=== PATIENT | male | born 1960 | race Caucasian/White ===

== ENCOUNTER 2020-08-23 22:46 | Emergency (ER) | payer SELFPAY ==
[~2020-08-23] VITALS: Ht 185.4 cm; Wt 84.4 kg
[2020-08-23 22:50] VITALS: BP 127/76
--- NOTE | 2020-08-23 22:55 | NUR ---
PT BIBRA C/O ETOH FOUND IN THE SIDEWALK. PT UNWILLING TO ANSWER QUESTIONS. BREATHING EVEN AND UNLABORED. ATTACHED TO MONITOR AND POX. MD AT BEDSIDE. WILL CONTINUE TO MONITOR.
--- NOTE | 2020-08-24 14:05 | NUR ---
"Finger Grip Machine Operator consult: hosted services analyst consult requested for homelessness and ETOH use. Patient is a 60-year-old, male. SW met with patient at his bedside in the emergency department. Patient was alert and oriented x2, name and time. Patient presented intoxicated and irritable. Patient appeared disheveled. Per chart, patient was brought in by ambulance on 08/24/20 for ETOH use and was found on a sidewalk. Patient stated that he is currently homeless. SW asked the patient if he currently has a source of income and patient reported no source of income. SW asked the patient if he has a history of substance use and patient reported alcohol use. Patient denied drug use. Patient declined to comment on his frequency of use. Patient denied history of mental illness. Patient denied suicidal and homicidal ideation. During interview, patient became aggressive and angry. SW offered the patient homeless and substance use resources and patient declined the resources. Patient threw the resources on the ground became increasingly agitated. Patient signed the homeless waiver and SW filed the waiver in the patient's chart. SW discussed discharge plans with the patient and patient stated he will return to his prior living arrangement on the street. Patient will use public transportation. PLAN: Patient will return to his prior living arrangement on the street at the time of discharge. No further SS intervention at this time, however, SW will remain available as needed. RESOURCES: Year-round shelters: [facility] [address] [place] [address] ; [place] [facility] [address] [place] [address]; [place] [facility] [id number] [facility] [address] SPA 4 | [facility] [place] Provider: First to Serve Address: [address], [address] # of Beds: 48 Population Served: [facility] Provider: First to Serve Address: [address] [facility], [address] # of Beds: 73 Population Served: [facility] 6 | [facility] Provider: Home at Last Address: [address] [facility], [address] # of Beds: 63 Population Served: [place] SPA 3 | [facility] Provider: Kya [place] Address: [address] [facility], [place], [address] # of Beds: 75 Population Served: Joshd SPA 8 | [facility] Provider: Kya [place] Address: [address] [facility], [address] # of Beds: 80 Population Served: Joshd SPA 1 | [facility] Provider: Volunteers reyes Ruggiero [place] Address: [address] [place] [address], [address] # of Beds: 85 Population Served: [facility] 2 | [facility] Provider: Karley chambers [facility] Address: Confidential (please call for location) # of Beds: 52 Population Served: [facility] 4 | [facility] Provider: [facility] [place] Address: [address] [place] [address], [facility] # of Beds: 49 Population Served: [facility] Provider: First To Serve Address: [address] [place] [address], [facility] # of Beds: 27 Population Served: Josh Hygiene: [facility]: [address] [facility] ; [facility] [address] [facility] ; [facility] [address] [facility] . Food Resources: [employer] at [facility]- [address] [facility]; Meet Each Need with Dign[facility] ([facility]) [address] [facility]; [facility] [address] [facility]; [facility] 7496 [facility]. Mental Health resources provided: [facility] [address] [place] [address] ; [facility] [place] [address] [facility] [address], [place], [place] [id number] ; [facility] [address] [place], [place] [id number] ; [facility] [address] [place], [place] [address] Healthcare Clinics: [facility] [address] [facility], [address] [place]. [place] ; [facility] [address] [facility] [address] [facility] [address]; [facility] [address] [facility]. [place] [phone] Counseling--Outpatient [facility] [address] [facility], [address] [place], [place] [address] (Specializes in in-depth psychotherapy for emotional distress: anxiety, depression, interpersonal conflicts, life transitions, childhood abuse) PSYCHIATRIC OUTPATIENT SERVICES [facility] Partial Hospitalization and Intensive Outpatient Program (Managed Care and [place] Only) [address] [facility] [address] [facility] Partial Hospitalization and Outpatient Program [address] [facility]. [address] [place] [address] [facility] Partial Hospitalization and Outpatient Program [address] [facility]. [place], [place] [id number] Critical access hospital [facility] [address] [facility]. [address] [place], [place] [address] [facility] Partial Hospitalization and Outpatient Program [address] [place], [place] [phone] Substance use resources provided included: [facility] Substance Abuse Self-Helpline (SASH) ; C[facility] [address] [facility] [phone] ; [facility] [address] [facility] [address] ; [facility] [address] [facility] [address] ; [facility] [address] [facility] [address] ; [facility] [address] [facility] [address] [facility] [phone] ; [facility]; [facility]; [facility] [place]; Alcoholics Anonymous -SFV"
== END 2020-08-24 01:51 | disposition home or self-care (01) ==
LOC: ER 22:53 → EDBD 22:53 → ER 08-24 01:51
DX: F10.129 Alcohol abuse with intoxication, unspecified (principal); Y90.9 Presence of alcohol in blood, level not specified